=== PATIENT | female | born 1980 | race Caucasian/White ===

== ENCOUNTER 2022-02-03 15:11 | Observation (INO) ==
[2022-02-03] MEDS ORDERED: IOPAMIDOL 100 ML BOTTLE IV ONE ×2 (15:12)
[2022-02-03] MEDS ORDERED: HYDROmorphone 0.5 MG/0.5 ML SYRINGE IV ONE (15:56)
[2022-02-03] MEDS ORDERED: ONDANSETRON 4 MG/2 ML VIAL IV ONE ×2 (15:56→19:27)
[2022-02-03] MEDS ORDERED: 0.9 % SODIUM CHLORIDE 1,000 ML IV ONE ×2 (15:56→17:24)
[2022-02-03 16:12] LABS: POC Calcium, Ionized 1.09 (1.16-1.32); POC Creatinine 0.9 (0.6-1.2); POC Potassium 3.7 (3.3-5.1)
--- NOTE | 2022-02-03 16:22 | Emergency Department Note ---
Abdominal Pain HPI General Chief Complaint: Abdominal Pain Stated Complaint: Post op pain Time Seen by Provider: 02/03/22 15:38 Source: patient and family Mode of arrival: ambulatory Limitations: no limitations History of Present Illness HPI Narrative: Narrative: 42-year-old female with past medical history of allergy to penicillin cephalexin presents with sharp persistent severe 10/10 diffuse abdominal pain associated with nausea and chest pain for 1 day. Patient had laparoscopic cholecystectomy yesterday by Dr. Ley. No headache dizziness vomiting constipation diarrhea fever or chills Related Data Home Medications Medication Instructions Recorded Confirmed levonorgestrel 20 mcg/24 hours (7 1 device intrauterine ONCE 01/26/22 02/01/22 yrs) 52 mg intrauterine device (Mirena) pseudoephedrine HCl 120 mg 120 mg PO Q12H PRN allergies 01/26/22 02/02/22 tablet,extended release (Sudafed 12 Hour) sodium chloride 0.65 % nasal spray 1 spray intranasal ONCE PRN 01/26/22 02/02/22 aerosol (Saline Mist) allergies alprazolam 0.5 mg tablet (Xanax) 0.5 mg PO QDAY PRN Anxiety 01/27/22 02/02/22 fluticasone propionate 50 1 spray intranasal QDAY PRN 01/27/22 02/01/22 mcg/actuation nasal allergies spray,suspension loratadine 10 mg tablet 10 mg PO QDAY PRN alllergies 01/27/22 02/02/22 multivitamin (Daily Multi-Vitamin 1 tab PO QAM 01/27/22 02/02/22 tablet) sumatriptan succinate 50 mg tablet 50 mg PO ONCE PRN migraines 01/27/22 02/02/22 Previous Rx's Medication Instructions Recorded acetaminophen 500 mg tablet 500 mg PO TID #15 tabs 02/02/22 (Tylenol Extra Strength) docusate sodium 100 mg capsule 100 mg PO QDAY #7 caps 02/02/22 (Dulcolax Stool Softener (docusate)) ondansetron 4 mg disintegrating 4 mg PO Q8H PRN nausea and 02/02/22 tablet vomiting #20 tabs oxycodone 5 mg tablet 5 mg PO Q4H PRN pain #20 tabs 02/02/22 Allergies Allergy/AdvReac Type Severity Reaction Status Date / Time Penicillins Allergy Severe Anaphylaxis Verified 02/02/22 06:18 Amoxicillin Allergy Intermediate Hallucinati Verified 02/02/22 06:18 ng cephalexin [From Keflex] Allergy Intermediate Nausea Verified 02/02/22 06:18 Review of Systems ROS ROS Narrative: Narrative: All systems ED: reviewed and negative except as stated. 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 Cipro and Flagyl given as antibiotics and will wait until Cipro infusion is complete to start. Risks of surgery discussed and potential need to convert to open surgery. Allergic rhinitis Anemia Anxiety disorder Chicken pox Cholelithiasis Depression Headache High-density lipoprotein deficiency Migraine without aura MRSA exposure Obesity Pain in right shoulder Panic disorder [episodic paroxysmal anxiety] Surgical History (Updated 01/26/22 @ 15:35 by Arabella Landis) History of surgery of uterus Hx of appendectomy Family History (Updated 01/26/22 @ 15:34 by Arabella Landis) Mother Anxiety disorder Depressive disorder Cardiac arrhythmia Father Anxiety disorder Depressive disorder Heart disease Hypertension Brother Depressive disorder Sister Depressive disorder all 3 Seizure disorder Grandfather Heart disease Paternal Hypertension Paternal Leukemia Paternal Grandmother Diabetes mellitus Maternal & Paternal Depressive disorder Maternal Malignant tumor of colon Maternal Lung cancer Grandmother Malignant neoplastic disease Maternal Social History Smoking Status: Never smoker Alcohol Intake Frequency: does not drink Substance Use: does not use Exam Narrative Narrative: Narrative: General Limitations: no limitations General appearance: Present alert and in no apparent distress Respiratory Respiratory: Present normal lung sounds bilaterally Cardiovascular Cardiovascular: Present regular rate, normal rhythm and normal heart sounds Adbominal Abdominal: Present soft, tenderness (difffuse), guarding and normal bowel sounds; Absent rebound, rigidity or organomegaly Extremities Extremities: Absent pedal edema, cyanosis or clubbing Neurological Neurological: Present alert and oriented X3 Skin Skin: Present warm (WNL) Course Course Course Narrative: CBC, CMP, amylase, lipase, UA, CRP, lactic acid, chest x-ray, CT abdomen with contrast were ordered. Normal saline 1000 mL IV was given Zofran 4 mg IV and a hydromorphone 0.5 mg IV was given. Care transferred to Dr. Juarez as discussed Vital Signs Vital signs: Vital Signs Temperature 97.2 F 02/03/22 15:13 Pulse Rate 92 H 02/03/22 15:13 Respiratory Rate 22 02/03/22 15:13 Blood Pressure 170/93 02/03/22 15:13 Pulse Oximetry (%) 96 02/03/22 15:13 Oxygen Delivery Method 02/03/22 15:13 Temperature 97.2 F 02/03/22 15:13 Pulse Rate 66 02/03/22 17:06 Respiratory Rate 32 H 02/03/22 16:13 Blood Pressure 168/95 02/03/22 16:13 Pulse Oximetry (%) 96 02/03/22 17:06 Oxygen Delivery Method 02/03/22 15:13 MDM MDM Narrative Medical decision making narrative: Narrative: Lab Data Result diagrams: 02/03/22 16:05 Labs: Lab Results 02/03/22 02/03/22 02/03/22 Range/Units 16:05 16:05 16:07 WBC 21.8 H (4.5-11.0) K/mcL RBC 5.54 H (3.59-5.38) M/mcL Hgb 15.8 H (11.2-15.7) g/dL Hct 47.8 H (34.1-44.9) % POC Hct (36-48) MCV 86.3 (80.0-100.0) fL MCH 28.5 (26.0-34.0) pg MCHC 33.1 (31.0-36.0) g/dL RDW 13.2 (11.5-14.5) % Plt Count 301 (140-440) K/mcL MPV 11.4 (8.8-12.5) fL Immature Gran % (Auto) 0.5 (0.0-0.5) % Neut % (Auto) 72.3 (38.0-78.0) % Lymph % (Auto) 20.2 (15.5-49.0) % [place] % (Auto) 6.9 (1.0-12.0) % Eos % (Auto) 0 (0.0-7.0) % Baso % (Auto) 0.1 (0.0-2.0) % Lymph # (Auto) 4.41 (1.50-4.80) K/mcL [place] # (Auto) 1.51 H (0.10-0.90) K/mcL Eos # (Auto) 0 (0.00-0.70) K/mcL Baso # (Auto) 0.03 (0.00-0.30) K/mcL Immature Gran # 0.10 H (0.00-0.05) K/mcl Absolute Neutrophils 15.74 H (1.80-8.00) K/mcL POC VBG pH 7.41 (7.32-7.42) POC VBG pCO2 at Temp 46.2 (41-51) POC VBG pO2 45 H (25-40) POC VBG HCO3 29.2 H (24-28) POC VBG Total CO2 31.0 H (25-29) POC Venous O2 Sat 80.0 H (40-70) POC VBG Base Excess 5.0 H* (-2-2) VBG Lactic Acid 3.4 H (0.5-2) POC Sodium (133-145) POC Potassium (3.3-5.1) POC Chloride (96-108) POC Total CO2 (22-30) POC BUN (6-20) POC Creatinine (0.6-1.2) POC Glucose (70-105) POC WB Ioniz Calcium (1.16-1.32) Total Bilirubin 0.7 (0.1-1.0) mg/dL Direct Bilirubin < 0.2 (0-0.3) mg/dL AST 27 (<32) U/L ALT 16 (<40) U/L Alkaline Phosphatase 89 (39-117) U/L C-Reactive Protein 1.60 H (0.03-0.80) mg/dL Total Protein 8.2 (5.9-8.4) gm/dL Albumin 4.4 (3.2-5.2) gm/dL Globulin 3.8 H (2.2-3.7) gm/dL Amylase 40 (28-100) U/L Lipase 16 (7-60) U/L 02/03/22 Range/Units 16:10 WBC (4.5-11.0) K/mcL RBC (3.59-5.38) M/mcL Hgb (11.2-15.7) g/dL Hct (34.1-44.9) % POC Hct 50.0 H (36-48) MCV (80.0-100.0) fL MCH (26.0-34.0) pg MCHC (31.0-36.0) g/dL RDW (11.5-14.5) % Plt Count (140-440) K/mcL MPV (8.8-12.5) fL Immature Gran % (Auto) (0.0-0.5) % Neut % (Auto) (38.0-78.0) % Lymph % (Auto) (15.5-49.0) % [place] % (Auto) (1.0-12.0) % Eos % (Auto) (0.0-7.0) % Baso % (Auto) (0.0-2.0) % Lymph # (Auto) (1.50-4.80) K/mcL [place] # (Auto) (0.10-0.90) K/mcL Eos # (Auto) (0.00-0.70) K/mcL Baso # (Auto) (0.00-0.30) K/mcL Immature Gran # (0.00-0.05) K/mcl Absolute Neutrophils (1.80-8.00) K/mcL POC VBG pH (7.32-7.42) POC VBG pCO2 at Temp (41-51) POC VBG pO2 (25-40) POC VBG HCO3 (24-28) POC VBG Total CO2 (25-29) POC Venous O2 Sat (40-70) POC VBG Base Excess (-2-2) VBG Lactic Acid (0.5-2) POC Sodium 142 (133-145) POC Potassium 3.7 (3.3-5.1) POC Chloride 104 (96-108) POC Total CO2 26.0 (22-30) POC BUN 7 (6-20) POC Creatinine 0.9 (0.6-1.2) POC Glucose 136 H (70-105) POC WB Ioniz Calcium 1.09 L (1.16-1.32) Total Bilirubin (0.1-1.0) mg/dL Direct Bilirubin (0-0.3) mg/dL AST (<32) U/L ALT (<40) U/L Alkaline Phosphatase (39-117) U/L C-Reactive Protein (0.03-0.80) mg/dL Total Protein (5.9-8.4) gm/dL Albumin (3.2-5.2) gm/dL Globulin (2.2-3.7) gm/dL Amylase (28-100) U/L Lipase (7-60) U/L Discharge Plan Patient/Caregiver Discharge Instructions Pt seen by [employer]OR[employer] C[employer]TER/PA only: No Clinical Impression: Abdominal pain Patient Disposition: Still a Patient Follow up with: Torsten Flores MD [Primary Care Provider] - Prescriptions: No Action Mirena 20 mcg/24 hours (7 yrs) 52 mg intrauterine device 1 device intrauterine ONCE Rx Instructions: as a single dose Saline Mist 0.65 % aerosol,spray 1 spray intranasal ONCE PRN (Reason: allergies) pseudoephedrine HCl [Sudafed 12 Hour] 120 mg tablet extended release 120 mg PO Q12H PRN (Reason: allergies) alprazolam [Xanax] 0.5 mg tablet 0.5 mg PO QDAY PRN (Reason: Anxiety) Label Comments: NEED fluticasone propionate 50 mcg/actuation spray,suspension 1 spray intranasal QDAY PRN (Reason: allergies) Rx Instructions: administer into each nostril loratadine 10 mg tablet 10 mg PO QDAY PRN (Reason: alllergies) Label Comments: LONG TINEMS AGO sumatriptan succinate 50 mg tablet 50 mg PO ONCE PRN (Reason: migraines) multivitamin [Daily Multi-Vitamin] Tablet 1 tab PO QAM oxycodone 5 mg tablet 5 mg PO Q4H PRN (Reason: pain) Qty: 20 0RF acetaminophen [Tylenol Extra Strength] 500 mg tablet 500 mg PO TID Qty: 15 0RF docusate sodium [Dulcolax Stool Softener (dss)] 100 mg capsule 100 mg PO QDAY Qty: 7 0RF ondansetron 4 mg tablet,disintegrating 4 mg PO Q8H PRN (Reason: nausea and vomiting) Qty: 20 0RF
--- NOTE | 2022-02-03 16:46 | XRay Report ---
INDICATION: chest pain. Status post cholecystectomy TECHNIQUE: PA and lateral upright chest x-ray COMPARISON: None FINDINGS: Lungs: Mild bibasilar pulmonary parenchymal density most consistent with atelectasis. Pneumonia is possible. Clinical correlation and follow-up radiographs recommended. Heart, vascular: No significant cardiomegaly. Pulmonary vascularity is normal. No pulmonary edema or pulmonary congestion Mediastinum, pedro: No mediastinal widening. No hilar mass Pleura:Mildly elevated right hemidiaphragm. There is prominent pneumoperitoneum. This patient is status post cholecystectomy and this is consistent with benign postoperative intraperitoneal gas. Thoracic spine, ribs: No thoracic compression fracture. Ribs are negative. No fracture. No lytic lesion IMPRESSION: 1. Pneumoperitoneum. Findings are most consistent with postsurgical pneumoperitoneum. 2. Mildly elevated right hemidiaphragm 3. Bibasilar parenchymal density consistent with atelectasis. Pneumonia is not excluded. Follow-up radiographs recommended Interpreted and Authenticated by: Carmelo León 02/03/22
--- NOTE | 2022-02-03 17:12 | Cat Scan Report ---
INDICATION: abd pain s/p Cholecystectomy 02/02/22 COMPARISON: Preoperative CT scans dated 01/25/2022, 06/12/2015 TECHNIQUE: Axial images were obtained through the abdomen and pelvis. Sagittally and coronally reformatted images. 80 mL Isovue 370 injected intravenously. Oral contrast material was not administered FINDINGS: Lung bases:Mild bilateral lower lobe parenchymal density. Appearance is most consistent with atelectasis. Liver:Negative. No focal intrahepatic mass. No focal abnormality. Liver contour is smooth. No evidence for cirrhosis Gallbladder, bilary:Status post cholecystectomy. There are surgical clips in the gallbladder fossa. Cholecystectomy was performed on 02/02/2022. There is pneumoperitoneum. There is no focal hematoma or abscess. No residual stone. No intra or extrahepatic bile duct dilatation Spleen:No splenomegaly. Normal enhancement of splenic and portal veins. Pancreas:No pancreatic mass. No peripancreatic abnormality Adrenal glands:Negative Kidneys,ureters,bladder:No solid renal mass. No hydronephrosis. No obstructing or nonobstructing calculi. No hydroureter. No ureteral calculus. No bladder stone. No detectable bladder mass. Gastrointestinal:No detectable colonic mass. There is no diverticulitis. Negative small bowel. No mechanical small bowel obstruction. No bowel wall thickening. No focal abnormality. Negative stomach and duodenum. No focal abnormality. Appendix: The appendix is removed Vascular:Negative abdominal aorta. Superior mesenteric artery and celiac trunk are normal. Normal opacification of the inferior mesenteric artery Lymphatic:No retroperitoneal or mesenteric adenopathy Mesentery, peritoneum: Small amount of free fluid within the pelvic cul-de-sac. No intra-abdominal abscess. Reproductive:There is an intrauterine contraceptive device within the uterus. No adnexal mass Musculoskeletal:No lumbar compression fractures. Sacrum and pelvis are negative. No hip fracture. No abdominal wall or inguinal hernia. There is subcutaneous gas in the right side of the abdomen consistent with laparoscopic port. There is gas within the right anterior abdominal wall musculature. No abdominal wall hematoma or abscess. IMPRESSION: 1. Findings consistent with postoperative pneumoperitoneum 2. Small amount of free fluid within the pelvic cul-de-sac 3. Bilateral lower lobe pulmonary parenchyma densities most consistent with atelectasis 4. Previous appendectomy The exam was performed using radiation dose optimization techniques including, but not limited to, automated exposure control, adjustment of the mA and/or kV according to patient size and use of iterative reconstruction technique. Interpreted and Authenticated by: Carmelo León 02/03/22
[2022-02-03 17:13] LABS: ALT/SGPT 16 U/L (<40); AST/SGOT 27 U/L (<32); Albumin 4.4 gm/dL (3.2-5.2); Alkaline Phosphatase 89 U/L (39-117); Amylase 40 U/L (28-100); Bilirubin,Direct < 0.2 mg/dL (0-0.3); Bilirubin,Total 0.7 mg/dL (0.1-1.0); Globulin 3.8 gm/dL (2.2-3.7)
[2022-02-03 17:17] LABS: Basophils # (Auto) 0.03 K/mcL (0.00-0.30); Basophils % (Auto) 0.1 % (0.0-2.0); Eosinophils # (Auto) 0 K/mcL (0.00-0.70); Eosinophils % (Auto) 0 % (0.0-7.0); Hematocrit 47.8 % (34.1-44.9); Hemoglobin 15.8 g/dL (11.2-15.7); Lymphocytes # (Auto) 4.41 K/mcL (1.50-4.80); Lymphocytes % (Auto) 20.2 % (15.5-49.0); Mean Cell Volume 86.3 fL (80.0-100.0); Mean Corpuscular HGB Conc 33.1 g/dL (31.0-36.0); Mean Platelet Volume 11.4 fL (8.8-12.5); Monocytes # (Auto) 1.51 K/mcL (0.10-0.90); Monocytes % (Auto) 6.9 % (1.0-12.0); Neutrophils % (Auto) 72.3 % (38.0-78.0); Platelet Count 301 K/mcL (140-440); RBC 5.54 M/mcL (3.59-5.38); Red Cell Distribution Width 13.2 % (11.5-14.5); WBC 21.8 K/mcL (4.5-11.0)
[2022-02-03] MEDS ORDERED: metroNIDAZOLE 500 MG/100 ML BAG IV ONE (17:24)
[2022-02-03] MEDS ORDERED: CIPROFLOXACIN 400 MG/200 ML BAG IV ONE (17:24)
--- NOTE | 2022-02-03 18:00 | Emergency Department Note ---
Course Course Course Narrative: I assumed care of patient at [address] results and lab results. CT abdomen pelvis obtained with image reviewed myself did not show any bile leak or abscess formation. Patient did have some atelectasis in the left lung base. Labs show that she had leukocytosis with a white cell count greater than 21. Patient was given some IV fluids and started on IV Cipro and Flagyl pr ophylactically after blood cultures were obtained as she did meet sepsis criteria with tachypnea and a heart rate greater than 90. Patient initial lactic acid was greater than 3. Repeat after IV fluids did improve. Labs also show that patient has some transaminitis which may be secondary to dehydration. Case was reviewed with on-call surgeon, Dr. Santos, who recommend that patient be admitted for observation which is reasonable. Plan was discussed with patient and family and they expressed verbal understanding and agreement of plan. Vital Signs Vital signs: Vital Signs Temperature 97.2 F 02/03/22 15:13 Pulse Rate 92 H 02/03/22 15:13 Respiratory Rate 22 02/03/22 15:13 Blood Pressure 170/93 02/03/22 15:13 Pulse Oximetry (%) 96 02/03/22 15:13 Oxygen Delivery Method 02/03/22 15:13 Temperature 97.2 F 02/03/22 15:13 Pulse Rate 79 02/03/22 17:37 Respiratory Rate 32 H 02/03/22 16:13 Blood Pressure 168/95 02/03/22 16:13 Pulse Oximetry (%) 98 02/03/22 17:37 Oxygen Delivery Method 02/03/22 15:13 [facility] Narrative Medical decision making narrative: Narrative: Sepsis Sepsis Identified: Yes Time Zero: 1530 Differential Diagnosis Differential Diagnosis: Sepsis, bile leak, intra-abdominal abscess, intra- abdominal infection Medical Records Medical records reviewed: Yes I reviewed the patient's medical records. Lab Data Lab results reviewed: Yes I reviewed the patient's lab results. Result diagrams: 02/03/22 16:05 Labs: Lab Results 02/03/22 02/03/22 02/03/22 Range/Units 16:05 16:05 16:07 WBC 21.8 H (4.5-11.0) K/mcL RBC 5.54 H (3.59-5.38) M/mcL Hgb 15.8 H (11.2-15.7) g/dL Hct 47.8 H (34.1-44.9) % POC Hct (36-48) MCV 86.3 (80.0-100.0) fL MCH 28.5 (26.0-34.0) pg MCHC 33.1 (31.0-36.0) g/dL RDW 13.2 (11.5-14.5) % Plt Count 301 (140-440) K/mcL MPV 11.4 (8.8-12.5) fL Immature Gran % (Auto) 0.5 (0.0-0.5) % Neut % (Auto) 72.3 (38.0-78.0) % Lymph % (Auto) 20.2 (15.5-49.0) % [place] % (Auto) 6.9 (1.0-12.0) % Eos % (Auto) 0 (0.0-7.0) % Baso % (Auto) 0.1 (0.0-2.0) % Lymph # (Auto) 4.41 (1.50-4.80) K/mcL [place] # (Auto) 1.51 H (0.10-0.90) K/mcL Eos # (Auto) 0 (0.00-0.70) K/mcL Baso # (Auto) 0.03 (0.00-0.30) K/mcL Immature Gran # 0.10 H (0.00-0.05) K/mcl Absolute Neutrophils 15.74 H (1.80-8.00) K/mcL POC VBG pH 7.41 (7.32-7.42) POC VBG pCO2 at Temp 46.2 (41-51) POC VBG pO2 45 H (25-40) POC VBG HCO3 29.2 H (24-28) POC VBG Total CO2 31.0 H (25-29) POC Venous O2 Sat 80.0 H (40-70) POC VBG Base Excess 5.0 H* (-2-2) VBG Lactic Acid 3.4 H (0.5-2) POC Sodium (133-145) POC Potassium (3.3-5.1) POC Chloride (96-108) POC Total CO2 (22-30) POC BUN (6-20) POC Creatinine (0.6-1.2) POC Glucose (70-105) POC WB Ioniz Calcium (1.16-1.32) Total Bilirubin 0.7 (0.1-1.0) mg/dL Direct Bilirubin < 0.2 (0-0.3) mg/dL AST 27 (<32) U/L ALT 16 (<40) U/L Alkaline Phosphatase 89 (39-117) U/L C-Reactive Protein 1.60 H (0.03-0.80) mg/dL Total Protein 8.2 (5.9-8.4) gm/dL Albumin 4.4 (3.2-5.2) gm/dL Globulin 3.8 H (2.2-3.7) gm/dL Amylase 40 (28-100) U/L Lipase 16 (7-60) U/L 02/03/22 Range/Units 16:10 WBC (4.5-11.0) K/mcL RBC (3.59-5.38) M/mcL Hgb (11.2-15.7) g/dL Hct (34.1-44.9) % POC Hct 50.0 H (36-48) MCV (80.0-100.0) fL MCH (26.0-34.0) pg MCHC (31.0-36.0) g/dL RDW (11.5-14.5) % Plt Count (140-440) K/mcL MPV (8.8-12.5) fL Immature Gran % (Auto) (0.0-0.5) % Neut % (Auto) (38.0-78.0) % Lymph % (Auto) (15.5-49.0) % [place] % (Auto) (1.0-12.0) % Eos % (Auto) (0.0-7.0) % Baso % (Auto) (0.0-2.0) % Lymph # (Auto) (1.50-4.80) K/mcL [place] # (Auto) (0.10-0.90) K/mcL Eos # (Auto) (0.00-0.70) K/mcL Baso # (Auto) (0.00-0.30) K/mcL Immature Gran # (0.00-0.05) K/mcl Absolute Neutrophils (1.80-8.00) K/mcL POC VBG pH (7.32-7.42) POC VBG pCO2 at Temp (41-51) POC VBG pO2 (25-40) POC VBG HCO3 (24-28) POC VBG Total CO2 (25-29) POC Venous O2 Sat (40-70) POC VBG Base Excess (-2-2) VBG Lactic Acid (0.5-2) POC Sodium 142 (133-145) POC Potassium 3.7 (3.3-5.1) POC Chloride 104 (96-108) POC Total CO2 26.0 (22-30) POC BUN 7 (6-20) POC Creatinine 0.9 (0.6-1.2) POC Glucose 136 H (70-105) POC WB Ioniz Calcium 1.09 L (1.16-1.32) Total Bilirubin (0.1-1.0) mg/dL Direct Bilirubin (0-0.3) mg/dL AST (<32) U/L ALT (<40) U/L Alkaline Phosphatase (39-117) U/L C-Reactive Protein (0.03-0.80) mg/dL Total Protein (5.9-8.4) gm/dL Albumin (3.2-5.2) gm/dL Globulin (2.2-3.7) gm/dL Amylase (28-100) U/L Lipase (7-60) U/L Radiology Data Radiology results reviewed: Yes I reviewed the patient's radiology results. Radiology results narrative: CT abdomen pelvis obtained, agree with radiologist interpretation Core Measures AMI Core Measures Followed: Yes Discharge Plan Patient/Caregiver Discharge Instructions Pt seen by ALL PURPOSE CLERK/PA only: No Clinical Impression: Transaminitis Abdominal pain Qualifiers: Abdominal location: generalized Qualified Code(s): R10.84 - Generalized abdominal pain Leukocytosis Qualifiers: Leukocytosis type: unspecified Qualified Code(s): D72.829 - Elevated white blood cell count, unspecified Patient Disposition: Xfer As Outpt/Obs ([facility]) Condition: Good Follow up with: Torsten Flores MD [Primary Care Provider] - Prescriptions: No Action Mirena 20 mcg/24 hours (7 yrs) 52 mg intrauterine device 1 device intrauterine ONCE Rx Instructions: as a single dose Saline Mist 0.65 % aerosol,spray 1 spray intranasal ONCE PRN (Reason: allergies) pseudoephedrine HCl [Sudafed 12 Hour] 120 mg tablet extended release 120 mg PO Q12H PRN (Reason: allergies) alprazolam [Xanax] 0.5 mg tablet 0.5 mg PO QDAY PRN (Reason: Anxiety) Label Comments: NEED fluticasone propionate 50 mcg/actuation spray,suspension 1 spray intranasal QDAY PRN (Reason: allergies) Rx Instructions: administer into each nostril loratadine 10 mg tablet 10 mg PO QDAY PRN (Reason: alllergies) Label Comments: LONG TINEMS AGO sumatriptan succinate 50 mg tablet 50 mg PO ONCE PRN (Reason: migraines) multivitamin [Daily Multi-Vitamin] Tablet 1 tab PO QAM oxycodone 5 mg tablet 5 mg PO Q4H PRN (Reason: pain) Qty: 20 0RF acetaminophen [Tylenol Extra Strength] 500 mg tablet 500 mg PO TID Qty: 15 0RF docusate sodium [Dulcolax Stool Softener (dss)] 100 mg capsule 100 mg PO QDAY Qty: 7 0RF ondansetron 4 mg tablet,disintegrating 4 mg PO Q8H PRN (Reason: nausea and vomiting) Qty: 20 0RF
[2022-02-03] MEDS ORDERED: morphine 2 MG/ML VIAL IV ONE (18:24)
[2022-02-03] MEDS ORDERED: ZOLPIDEM 5 MG TABLET PO PRN (19:46)
[2022-02-03] MEDS ORDERED: HYDROmorphone 0.5 MG/0.5 ML SYRINGE IV PRN (19:46)
[2022-02-03] MEDS: LACTATED RINGERS 1,000 ML IV SCH (19:52)
[2022-02-03 19:54] LABS: Appearance,Urine CLEAR (Clear); Bilirubin,Urine Negative (Negative); Color,Urine YELLOW; Culture Indicated,Urine No; Glucose,Urine (UA) Negative (Negative); Ketones,Urine 5 mg/dL (Negative); Leukocyte Esterase,Urine Negative /uL (Negative); Nitrate,Urine Negative (Negative); Protein,Urine Negative (Negative); Specific Gravity,Urine 1.032 (1.000-1.035); Urine Blood Negative (Negative); Urobilinogen,Urine Negative
[2022-02-03] MEDS: oxyCODONE HCL 5 MG TABLET PO PRN (22:00)
[2022-02-04] MEDS: LACTATED RINGERS 1,000 ML IV SCH (02:45)
[2022-02-04] MEDS: oxyCODONE HCL 5 MG TABLET PO PRN ×5 (03:07→20:28)
[2022-02-04] MEDS: KETOROLAC 30 MG/ML VIAL IV SCH ×2 (06:36→16:08)
[2022-02-04 07:27] LABS: Basophils # (Auto) 0.04 K/mcL (0.00-0.30); Basophils % (Auto) 0.4 % (0.0-2.0); Eosinophils # (Auto) 0.01 K/mcL (0.00-0.70); Eosinophils % (Auto) 0.1 % (0.0-7.0); Hematocrit 38.9 % (34.1-44.9); Hemoglobin 12.4 g/dL (11.2-15.7); Lymphocytes # (Auto) 3.72 K/mcL (1.50-4.80); Lymphocytes % (Auto) 34.5 % (15.5-49.0); Mean Cell Volume 89.4 fL (80.0-100.0); Mean Corpuscular HGB Conc 31.9 g/dL (31.0-36.0); Mean Platelet Volume 10.6 fL (8.8-12.5); Monocytes # (Auto) 0.93 K/mcL (0.10-0.90); Monocytes % (Auto) 8.6 % (1.0-12.0); Neutrophils % (Auto) 55.8 % (38.0-78.0); Platelet Count 224 K/mcL (140-440); RBC 4.35 M/mcL (3.59-5.38); Red Cell Distribution Width 13.3 % (11.5-14.5); WBC 10.8 K/mcL (4.5-11.0)
[2022-02-04 07:40] LABS: Blood Urea Nitrogen 6 mg/dL (6-20); Calcium 8.4 mg/dL (8.6-10.4); Carbon Dioxide 27 mmol/L (22-30); Chloride 104 mmol/L (96-108); Glomerular Filtration Rate 108; Glucose 88 mg/dL (70-105)
--- NOTE | 2022-02-04 08:57 | General Surg History&Physical ---
HPI History of Present Illness Patient information: Note initiated : 02/04/22 at 8:53 am Service Date, if different from initiated Date: [] Patient: Joellen Laguna 42 y/o F admitted on 02/03/22 for Post op pain. Chief Complaint: [] Chief complaint: Abdominal pain following laparoscopic cholecystectomy History of present illness: Ms. Laguna is a 42 year old F who underwent a laparoscopic cholecystectomy on by Dr. Ley. She called the office and was in excruciating pain, she came to the emergency room where full work-up was significant for elevated white blood cell count and a relatively normal CT for postop day #1. She was having no fevers chills, her pain was described as epigastric in nature with shortness of breath. She was admitted overnight for pain control. Review of Systems Review of systems: All systems are reviewed, negative other than above PFSH PFSH All Active Problems Status post cholecystectomy (Acute) Abdominal pain (Acute) Leukocytosis (Acute) Transaminitis (Acute) Cholelithiasis (Acute) Panic disorder [episodic paroxysmal anxiety] (Chronic) Pain in right shoulder (Chronic) Obesity (Chronic) MRSA exposure (Chronic) Headache (Chronic) Depression (Chronic) Chicken pox (Chronic) Anxiety disorder (Chronic) Anemia (Chronic) Allergic rhinitis (Chronic) High-density lipoprotein deficiency (Chronic) Migraine without aura (Chronic) Cholelithiasis (Chronic) Migraine (Acute) Abdominal pain (Acute) Acute appendicitis (Acute) Medical History Acute appendicitis Acute appendicitis and I have recommended laparoscopic appendectomy with indicated procedures. Cipro and Flagyl given as antibiotics and will wait until Cipro infusion is complete to start. Risks of surgery discussed and potential need to convert to open surgery. Allergic rhinitis Anemia Anxiety disorder Chicken pox Cholelithiasis Depression Headache High-density lipoprotein deficiency Migraine without aura MRSA exposure Obesity Pain in right shoulder Panic disorder [episodic paroxysmal anxiety] Surgical History History of surgery of uterus Hx of appendectomy Family History Mother Anxiety disorder Depressive disorder Cardiac arrhythmia Father Anxiety disorder Depressive disorder Heart disease Hypertension Brother Depressive disorder Sister Depressive disorder all 3 Seizure disorder Grandfather Heart disease Paternal Hypertension Paternal Leukemia Paternal Grandmother Diabetes mellitus Maternal & Paternal Depressive disorder Maternal Malignant tumor of colon Maternal Lung cancer Grandmother Malignant neoplastic disease Maternal Social History (Updated 01/26/22 @ 15:35 by Arabella Landis) smoking status: Never smoker alcohol intake frequency: does not drink substance use type: does not use MEDS/ALLERGIES Home Medications and Allergies Home Medications Medication Instructions Recorded Confirmed Type levonorgestrel 20 mcg/24 hours (7 1 device intrauterine ONCE 01/26/22 02/04/22 History yrs) 52 mg intrauterine device (Mirena) pseudoephedrine HCl 120 mg 120 mg PO Q12H PRN allergies 01/26/22 02/04/22 History tablet,extended release (Sudafed 12 Hour) sodium chloride 0.65 % nasal spray 1 spray intranasal ONCE PRN 01/26/22 02/04/22 History aerosol (Saline Mist) allergies alprazolam 0.5 mg tablet (Xanax) 0.5 mg PO QDAY PRN Anxiety 01/27/22 02/04/22 History fluticasone propionate 50 1 spray intranasal QDAY PRN 01/27/22 02/04/22 History mcg/actuation nasal allergies spray,suspension loratadine 10 mg tablet 10 mg PO QDAY PRN alllergies 01/27/22 02/04/22 History multivitamin (Daily Multi-Vitamin 1 tab PO QAM 01/27/22 02/04/22 History tablet) sumatriptan succinate 50 mg tablet 50 mg PO ONCE PRN migraines 01/27/22 02/04/22 History acetaminophen 500 mg tablet 500 mg PO TID #15 tabs 02/02/22 02/04/22 Rx (Tylenol Extra Strength) docusate sodium 100 mg capsule 100 mg PO QDAY #7 caps 02/02/22 02/04/22 Rx (Dulcolax Stool Softener (docusate)) ondansetron 4 mg disintegrating 4 mg PO Q8H PRN nausea and 02/02/22 02/04/22 Rx tablet vomiting #20 tabs oxycodone 5 mg tablet 5 mg PO Q4H PRN pain #20 tabs 02/02/22 02/04/22 Rx Allergies Allergy/AdvReac Type Severity Reaction Status Date / Time Penicillins Allergy Severe Anaphylaxis Verified 02/02/22 06:18 Amoxicillin Allergy Intermediate Hallucinati Verified 02/02/22 06:18 ng cephalexin [From Keflex] Allergy Intermediate Nausea Verified 02/02/22 06:18 Physical Examination Vital Signs Vital signs: Temp Pulse Resp BP Pulse Ox O2 Del Method 99.2 F H 78 20 151/93 96 02/04/22 07:57 02/04/22 02:35 02/04/22 07:57 02/04/22 07:57 02/04/22 07:57 02/04/22 07:57 General physical appearance General physical exam: well developed, well nourished and no distress Eyes Eye exam: PERRL and normal ocular movement ENT ENT exam: normal pinna, normal nares, normal mucosa, no hearing loss and no congestion Head Head exam IM: Present atraumatic and normocephalic Neck Neck exam: no masses, no bruits, trachea midline, no lymphadenopathy and no venous distension Cardiovascular Cardiovascular exam IM: Present normal rate and rhythm Respiratory Respiratory exam: normal expansion, normal respiratory effort, clear to percussion and clear to auscultation Abdomen Abdomen: Present soft, tender, bowel sounds and surgical scars (Clean dry and intact) Hernia: Present none Genitourinary Genitourinary (Female): Present normal external genitalia Rectum Rectum: Present normal sphincter tone, no hemorrhoids, no tenderness, no masses and no bleeding Integumentary Integumentary: Present no rash, no growths and no abnormal pigmentation Neurologic Neurologic: Present normal coordination and normal sensation Musculoskeletal Musculoskeletal: Present normal gait and normal posture Psychiatric Psychiatric: Present oriented to time, oriented to person, oriented to place, s peech is normal and memory intact Results Labs Result diagrams: 02/04/22 06:24 02/04/22 06:24 Labs: Abnormal lab results 02/03/22 02/03/22 02/03/22 Range/Units 16:05 16:05 16:07 WBC 21.8 H (4.5-11.0) K/mcL RBC 5.54 H (3.59-5.38) M/mcL Hgb 15.8 H (11.2-15.7) g/dL Hct 47.8 H (34.1-44.9) % POC Hct (36-48) Immature Gran % (Auto) (0.0-0.5) % [place] # (Auto) 1.51 H (0.10-0.90) K/mcL Immature Gran # 0.10 H (0.00-0.05) K/mcl Absolute Neutrophils 15.74 H (1.80-8.00) K/mcL POC VBG pCO2 at Temp (41-51) POC VBG pO2 45 H (25-40) POC VBG HCO3 29.2 H (24-28) POC VBG Total CO2 31.0 H (25-29) POC Venous O2 Sat 80.0 H (40-70) POC VBG Base Excess 5.0 H* (-2-2) VBG Lactic Acid 3.4 H (0.5-2) POC Glucose (70-105) Calcium (8.6-10.4) mg/dL POC WB Ioniz Calcium (1.16-1.32) C-Reactive Protein 1.60 H (0.03-0.80) mg/dL Globulin 3.8 H (2.2-3.7) gm/dL Urine Ketones (Negative) mg/dL 02/03/22 02/03/22 02/03/22 Range/Units 16:10 18:25 18:34 WBC (4.5-11.0) K/mcL RBC (3.59-5.38) M/mcL Hgb (11.2-15.7) g/dL Hct (34.1-44.9) % POC Hct 50.0 H (36-48) Immature Gran % (Auto) (0.0-0.5) % [place] # (Auto) (0.10-0.90) K/mcL Immature Gran # (0.00-0.05) K/mcl Absolute Neutrophils (1.80-8.00) K/mcL POC VBG pCO2 at Temp 39.8 L (41-51) POC VBG pO2 24 L (25-40) POC VBG HCO3 (24-28) POC VBG Total CO2 (25-29) POC Venous O2 Sat (40-70) POC VBG Base Excess (-2-2) VBG Lactic Acid (0.5-2) POC Glucose 136 H (70-105) Calcium (8.6-10.4) mg/dL POC WB Ioniz Calcium 1.09 L (1.16-1.32) C-Reactive Protein (0.03-0.80) mg/dL Globulin (2.2-3.7) gm/dL Urine Ketones 5 A (Negative) mg/dL 02/04/22 02/04/22 Range/Units 06:24 06:24 WBC (4.5-11.0) K/mcL RBC (3.59-5.38) M/mcL Hgb (11.2-15.7) g/dL Hct (34.1-44.9) % POC Hct (36-48) Immature Gran % (Auto) 0.6 H (0.0-0.5) % [place] # (Auto) 0.93 H (0.10-0.90) K/mcL Immature Gran # 0.06 H (0.00-0.05) K/mcl Absolute Neutrophils (1.80-8.00) K/mcL POC VBG pCO2 at Temp (41-51) POC VBG pO2 (25-40) POC VBG HCO3 (24-28) POC VBG Total CO2 (25-29) POC Venous O2 Sat (40-70) POC VBG Base Excess (-2-2) VBG Lactic Acid (0.5-2) POC Glucose (70-105) Calcium 8.4 L (8.6-10.4) mg/dL POC WB Ioniz Calcium (1.16-1.32) C-Reactive Protein (0.03-0.80) mg/dL Globulin (2.2-3.7) gm/dL Urine Ketones (Negative) mg/dL Diabetes panel 02/03/22 02/04/22 Range/Units 16:05 06:24 Sodium 139 (133-145) mmol/L Potassium 4.2 (3.3-5.1) mmol/L Chloride 104 (96-108) mmol/L Carbon Dioxide 27 (22-30) mmol/L BUN 6 (6-20) mg/dL Creatinine 0.7 (0.6-1.1) mg/dL Glucose 88 (70-105) mg/dL Calcium 8.4 L (8.6-10.4) mg/dL AST 27 (<32) U/L ALT 16 (<40) U/L Alkaline Phosphatase 89 (39-117) U/L Total Protein 8.2 (5.9-8.4) gm/dL Albumin 4.4 (3.2-5.2) gm/dL Calcium panel 02/03/22 02/04/22 Range/Units 16:05 06:24 Calcium 8.4 L (8.6-10.4) mg/dL Albumin 4.4 (3.2-5.2) gm/dL Pituitary panel 02/04/22 Range/Units 06:24 Sodium 139 (133-145) mmol/L Potassium 4.2 (3.3-5.1) mmol/L Chloride 104 (96-108) mmol/L Carbon Dioxide 27 (22-30) mmol/L BUN 6 (6-20) mg/dL Creatinine 0.7 (0.6-1.1) mg/dL Glucose 88 (70-105) mg/dL Calcium 8.4 L (8.6-10.4) mg/dL Adrenal panel 02/03/22 02/04/22 Range/Units 16:05 06:24 Sodium 139 (133-145) mmol/L Potassium 4.2 (3.3-5.1) mmol/L Chloride 104 (96-108) mmol/L Carbon Dioxide 27 (22-30) mmol/L BUN 6 (6-20) mg/dL Creatinine 0.7 (0.6-1.1) mg/dL Glucose 88 (70-105) mg/dL Calcium 8.4 L (8.6-10.4) mg/dL Total Bilirubin 0.7 (0.1-1.0) mg/dL AST 27 (<32) U/L ALT 16 (<40) U/L Alkaline Phosphatase 89 (39-117) U/L Total Protein 8.2 (5.9-8.4) gm/dL Albumin 4.4 (3.2-5.2) gm/dL All other labs normal. Imaging CT scan - abdomen: image reviewed A/P Assessment and plan (1) Status post cholecystectomy: Assessment and plan: Postoperative day #2 status post laparoscopic cholecystectomy Plan: Advance diet as tolerated. Ambulate as tolerated. Anticipate home tomorrow. Status: Acute Time Spent With Patient Time: Total time spent is greater than 50% in coordination of care (as documented) at patient's floor/unit and/or counseling patient:
[2022-02-04] MEDS ORDERED: FLUTICASONE PROPIONATE SPRAY.NAS NS PRN (08:59)
[2022-02-04] MEDS ORDERED: LORATADINE 10 MG TABLET PO PRN (08:59)
[2022-02-04] MEDS ORDERED: ALPRAZolam 0.5 MG TABLET PO PRN (08:59)
[2022-02-04] MEDS: ONDANSETRON 4 MG/2 ML VIAL IV PRN ×2 (09:58→18:48)
[2022-02-04] MEDS: ACETAMINOPHEN 325 MG TABLET PO PRN ×2 (09:58→18:39)
[2022-02-05] MEDS: KETOROLAC 30 MG/ML VIAL IV SCH ×2 (01:03→07:48)
[2022-02-05] MEDS: oxyCODONE HCL 5 MG TABLET PO PRN (07:48)
--- NOTE | 2022-02-05 09:16 | Discharge Summary ---
Discharge Provider Provider IMPORTANT FOLLOW-UP INFORMATION FOR PCP: Patient information: Note initiated : 02/05/22 at 9:14 am Service Date, if different from initiated Date: [] Patient: Joellen Laguna 42 y/o F admitted on 02/03/22 for Post op pain. Chief Complaint: [] Date of admission: 02/03/22 19:39 Discharge date: 02/05/22 Primary care physician: Kendall Flores Consults: 02/04/22 07:34 Consult to Physician [CONS] Routine Comment: Consulting Provider: Huber Santos Reason For Exam: Physician to Consult COURSE Hospital Course Hospital course: Patient was status post laparoscopic cholecystectomy, presented to the emergency room postop day #1 with increased abdominal pain. Work-up was essentially within normal therefore she was admitted for pain control. Her pain is much better controlled now, she is tolerating regular diet, ambulatory and afebrile without any signs of complication from her surgery Discharge diagnosis: Status post laparoscopic cholecystectomy Time Spent with Patient Time attestation: Total time spent providing and/or coordinating discharge services: Time spent: Less than 30 minutes Physical Examination Vital Signs Vital signs: Temp Pulse Resp BP Pulse Ox O2 Del Method 98.5 F 87 16 134/80 97 02/05/22 07:24 02/05/22 07:24 02/05/22 07:24 02/05/22 07:24 02/05/22 07:24 02/05/22 07:24 Discharge Plan Patient/Caregiver Discharge Instructions Activity: increase activity as tolerated Diet: Regular Diet Activity Restrictions/Additional Instructions: Follow-up with Dr. Ley as scheduled. May shower as normal. Prescriptions: New ibuprofen 800 mg tablet 800 mg PO TID PRN (Reason: pain) Qty: 90 0RF Continued Mirena 20 mcg/24 hours (7 yrs) 52 mg intrauterine device 1 device intrauterine ONCE Rx Instructions: as a single dose Saline Mist 0.65 % aerosol,spray 1 spray intranasal ONCE PRN (Reason: allergies) pseudoephedrine HCl [Sudafed 12 Hour] 120 mg tablet extended release 120 mg PO Q12H PRN (Reason: allergies) alprazolam [Xanax] 0.5 mg tablet 0.5 mg PO QDAY PRN (Reason: Anxiety) Label Comments: NEED fluticasone propionate 50 mcg/actuation spray,suspension 1 spray intranasal QDAY PRN (Reason: allergies) Rx Instructions: administer into each nostril loratadine 10 mg tablet 10 mg PO QDAY PRN (Reason: alllergies) Label Comments: LONG TINEMS AGO sumatriptan succinate 50 mg tablet 50 mg PO ONCE PRN (Reason: migraines) multivitamin [Daily Multi-Vitamin] Tablet 1 tab PO QAM oxycodone 5 mg tablet 5 mg PO Q4H PRN (Reason: pain) Qty: 20 0RF acetaminophen [Tylenol Extra Strength] 500 mg tablet 500 mg PO TID Qty: 15 0RF docusate sodium [Dulcolax Stool Softener (dss)] 100 mg capsule 100 mg PO QDAY Qty: 7 0RF ondansetron 4 mg tablet,disintegrating 4 mg PO Q8H PRN (Reason: nausea and vomiting) Qty: 20 0RF Follow Up Plan Follow up with: Josh Ley MD [Physician] - Torsten Flores MD [Primary Care Provider] - Patient Disposition: Home, Self-Care Prognosis: Good Discharge Orders: Discharge Order (Routine); Ordered 02/05/22 Ordered By: Huber Santos Pending Pending Pending: Diet Regular Diet Start Sat Feb 04 858 Acetaminophen (Acetaminophen 325 Mg Tablet) 650 mg PO Q6HP PRN; Protocol PRN Reason: Per Pain Protocol/Fever > 101 Last Admin: 02/04/22 18:39 Dose: 650 mg Documented By: Admin: 02/04/22 09:58 Dose: 650 mg Documented By: ARNOLDO Ketorolac Tromethamine (Ketorolac 30 Mg/Ml Vial) 15 mg IV Q6HP [facility]; Protocol Stop: 02/05/22 17:54 Last Admin: 02/05/22 07:48 Dose: 15 mg Documented By: [email or web address] Admin: 02/05/22 01:03 Dose: 15 mg Documented By: Admin: 02/04/22 16:08 Dose: 15 mg Documented By: Admin: 02/04/22 06:36 Dose: 15 mg Documented By: ARONLDO Ondansetron HCl (Ondansetron 4 Mg/2 Ml Vial) 4 mg IV Q6HP PRN PRN Reason: Nausea And Vomiting Last Admin: 02/04/22 18:48 Dose: 4 mg Documented By: Admin: 02/04/22 09:58 Dose: 4 mg Documented By: ARNOLDO Oxycodone HCl (Oxycodone Hcl 5 Mg Tablet) 5 mg PO Q4HP PRN; Protocol PRN Reason: Per Pain Protocol Last Admin: 02/05/22 07:48 Dose: 5 mg Documented By: [email or web address] Admin: 02/04/22 20:28 Dose: 5 mg Documented By: Admin: 02/04/22 16:09 Dose: 5 mg Documented By: Admin: 02/04/22 12:12 Dose: 5 mg Documented By: Admin: 02/04/22 06:36 Dose: 5 mg Documented By: Admin: 02/04/22 03:07 Dose: 5 mg Documented By: Admin: 02/03/22 22:00 Dose: 5 mg Documented By: LINDA Shift Summary 02/05/22 05:05 Shift Summary by Cate Pardo Primary Diagnosis: Post op pain Registration Status: OBS Date of Surgery (if applicable): 02/02/2022-[facility] jose alejandro Pertinent Medical Dx/Issue(s): Anxiety, migraines, panic disorder, and depression Med management (antibiotics, diuretics, BP): N/A Skin/Wound Care: Lap sites x3 Vital Signs with Trends: VSS on RA O2, liter flow/saturations: N/A Pain management (acute vs. chronic): Roxicodone 5 mg x1, zofran x1, tylenol 650 mg x1, toradol x1 Lab/Rad (abnormal, trends): Neuro/Mental Status: A & O x4 Cardiac Rhythm, Alarm Settings: Urinary Elimination Device: Toilet Urinary output greater than 30mL/hr? Yes Date of last BM: 02/02/2022 Lines/Tubes: L AC; LR 150 mL/hr Activity: Independent Recommendations/questions for MD: Discharge Plan (needs, disposition, etc): Home with Initialized on 02/05/22 05:05 - END OF NOTE
== END 2022-02-05 11:25 | disposition home or self-care (01) ==
LOC: ED 15:11 → MEDSUR 15:11
PROVIDERS: ADMIT Surgery; ATTEND Surgery